=== PATIENT | female | born 1955 ===

== ENCOUNTER 2018-07-29 19:27 | Emergency (ER) | payer OTHER ==
[2018-07-29 19:27] VITALS: BMI 24.7
[2018-07-29 19:36] VITALS: TEMP 97.5
--- NOTE | 2018-07-29 20:20 | ED PDOC ---
HPI: Hypertension/Hypotension Time Seen by Provider: 07/29/18 19:42 Chief Complaint (Nursing): High Blood Pressure Chief Complaint (Provider): High Blood Pressure History Per: Patient History/Exam Limitations: no limitations Onset/Duration Of Symptoms: Hrs ([employer]) Associated Symptoms: Dizziness Additional Complaint(s): 63 y/o female with history of HTN and hypercholesterolemia presents to the ED complaining of elevated blood pressure at home after verbal argument causing her to feel anxious and upset. Patient reports feeling pressure behind her eyes and felt dizzy. Denies chest pain, shortness of breath, or headache. Patient took her daily Losartan and Hydrochlorothiazide and laid down. Afterwards she still felt dizzy so she came to the hospital. Past Medical History Reviewed: Historical Data, Nursing Documentation, Vital Signs Vital Signs: Last Vital Signs Temp 97.5 F L 07/29/18 19:33 Pulse 74 07/29/18 19:33 Resp 18 07/29/18 19:33 BP 173/82 H 07/29/18 19:33 Pulse Ox 98 07/29/18 19:33 - Medical History PMH: Gastritis, HTN, Hypercholesterolemia, Migraine Denies: Chronic Kidney Disease - Surgical History Surgical History: Endoscopy - Family History Family History: States: Unknown Family Hx, CAD - Social History Current smoker - smoking cessation education provided: No - Home Medications Home Medications: Ambulatory Orders Medication Instructions Recorded Pravastatin Sodium [Pravastatin] 20 mg PO DAILY 10/27/14 Dicyclomine [Bentyl] 10 mg PO TID PRN #15 cap 01/05/16 Hydrochlorothiazide [HCTZ] 12.5 mg PO DAILY 01/05/16 Gabapentin [Neurontin] 300 mg PO DAILY 08/06/16 RX: Dicyclomine HCl 10 mg PO DAILY 08/06/16 - Allergies Allergies/Adverse Reactions: Allergies Allergy/AdvReac Type Severity Reaction Status Date / Time No Known Allergies Allergy Verified 03/07/14 11:49 Review of Systems ROS Statement: Except As Marked, All Systems Reviewed And Found Negative Constitutional: Negative for: Fever Cardiovascular: Negative for: Chest Pain Respiratory: Negative for: Cough, Shortness of Breath Neurological: Positive for: Dizziness. Negative for: Headache Psych: Positive for: Anxiety. Negative for: Depression, Suicidal ideation Physical Exam - Reviewed Nursing Documentation Reviewed: Yes Vital Signs Reviewed: Yes - Physical Exam Appears: Positive for: Well, Non-toxic, No Acute Distress Head Exam: Positive for: ATRAUMATIC, NORMAL INSPECTION, NORMOCEPHALIC Skin: Positive for: Normal Color, Warm, Dry Eye Exam: Positive for: EOMI, Normal appearance, PERRL ENT: Positive for: Normal ENT Inspection Neck: Positive for: Normal, Painless ROM Cardiovascular/Chest: Positive for: Regular Rate, Rhythm. Negative for: Edema, Murmur Respiratory: Positive for: Normal Breath Sounds. Negative for: Respiratory Distress Gastrointestinal/Abdominal: Positive for: Normal Exam, Soft. Negative for: Tenderness Back: Positive for: Normal Inspection Extremity: Positive for: Normal ROM. Negative for: Pedal Edema, Deformity Neurologic/Psych: Positive for: Alert, Oriented, Mood/Affect (anxious but good insight). Negative for: Motor/Sensory Deficits - Laboratory Results Result Diagrams: 07/29/18 20:18 07/29/18 20:18 - ECG O2 Sat by Pulse Oximetry: 98 (RA) Pulse Ox Interpretation: Normal Medical Decision Making Medical Decision Making: Time: 19:42 Initial Impression: Hypertension and dizziness Initial Plan: * Basic blood work * 0.25 mg Catapres * 0.25 mg Xanax labs were unremarkable and BP demonstrated marked improvement with resolution of symptoms. DC from ED followup PMD Scribe Attestation: Documented by Moreno Salazar, acting as a scribe for Terry Rueda III, DO Provider Scribe Attestation: All medical record entries made by the Scribe were at my direction and personally dictated by me. I have reviewed the chart and agree that the record accurately reflects my personal performance of the history, physical exam, medical decision making, and the department course for this patient. I have also personally directed, reviewed, and agree with the discharge instructions and disposition. Disposition - Clinical Impression Clinical Impression: Anxiety, Hypertension - Patient ED Disposition Is Patient to be Admitted: No Counseled Patient/Family Regarding: Studies Performed, Diagnosis, Need For Followup - Disposition Disposition Time: 21:30 Condition: STABLE Additional Instructions: Continue medications as prior prescribed. Followup with your doctor as directed. Instructions: High Blood Pressure in Adults, Anxiety, Adult (DC) Forms: [employer] (Azeri)
[2018-07-29 20:24] LABS: BASO % 0.4 % (0.0-2.0); EOS % 0.8 % (0.0-4.0); HEMOGLOBIN 13.5 g/dL (12.0-16.0); LYMPH # 1.8 K/uL (1.0-4.3); LYMPH % 35.1 % (20.0-40.0); MEAN CELL VOLUME 90.1 fl (81.0-99.0); MEAN CORPUSCULAR HEMOGLOBIN 29.8 pg (27.0-31.0); MEAN CORPUSCULAR HGB CONC 33.1 g/dL (33.0-37.0); MEAN PLATELET VOLUME 8.5 fl (7.2-11.7); MONO # 0.4 K/uL (0.0-0.8); NEUT % 56.7 % (50.0-75.0); RBC 4.54 Mil/uL (3.80-5.20); RED CELL DISTRIBUTION WIDTH 12.9 % (11.5-14.5); WHITE BLOOD COUNT 5.2 K/uL (4.8-10.8)
[2018-07-29 20:31] VITALS: RESP 16
[2018-07-29 21:05] LABS: ALB/GLOB RATIO 1.2 (1.0-2.1); ALBUMIN 4.1 g/dL (3.5-5.0); ALT/SGPT 27 U/L (9-52); AST/SGOT 33 U/L (14-36); BLOOD UREA NITROGEN 20 mg/dl (7-17); GFR NON-AFRICAN AMERICAN > 60
[2018-07-29 21:17] VITALS: BP 116/70; PULSE 65
[2018-07-29 21:20] LABS: B-TYPE NATRIURETIC PEPTIDE 24.6 pg/ml (0-900)
[2018-07-29] MEDS ORDERED: Potassium Chloride 20 mEq ER Tab PO ONE ×2 (21:22→21:32)
[2018-07-30 14:01] VITALS: O2SAT 98
== END 2018-07-29 21:36 | disposition home or self-care (01) ==
LOC: H.ER 19:27
DX: I10 Essential (primary) hypertension (principal); F41.9 Anxiety disorder, unspecified